=== PATIENT | female | born 1990 | race Caucasian/White ===

== ENCOUNTER → 2016-06-25 | Outpatient (REF) ==
[~2016-06-25] MED LIST: ALB0.5V INH; ALPR1TAB7 PO; AMOXIL; CLIN300C3 PO; CYCL10TA45 PO; FERR-57 PO; FRS325T; GLYB5TAB6 PO; HDR10T; HYDR-1231 PO; HYDR-31; IBP600T1 PO; IBUP-1780 PO; IBUP800T26 PO; METR500T PO; NITR-65 PO; NITR100C PO; ONDAN4ODT PO; OSLT75C PO; OXYC-272 PO; PHEN200T27 PO; PREN1TAB39; PREN1TAB39 PO; PRNMV1T; ZLP10T PO
--- NOTE | 2016-06-25 10:07 | Diagnostic Imaging Report ---
INDICATION: Medial left knee pain for one week. 3 views of the left knee show no fracture, dislocation, or other abnormality. IMPRESSION: Normal left knee. Dictated by: Dictated on workstation # [id number]
== END | disposition home or self-care (01) ==
LOC: OCC 09:33
PROVIDERS: ATTEND Nurse Practitioner Family
CPT/HCPCS: 73562

== ENCOUNTER → 2016-07-14 | Outpatient (CLI) | payer BC ==
--- NOTE | 2016-07-14 17:13 | Diagnostic Imaging Report ---
Transabdominal and transvaginal pelvic ultrasound. INDICATION: Pelvic pain. Secondary amenorrhea. FINDINGS: The uterus is 7.3 x 4.6 x 4.4 cm. The endometrial stripe is 1 cm in thickness. No endometrial or myometrial focal lesion of significance is identified. Minimal amount of endometrial fluid is seen in the lower uterine segment. The right ovary is 3.2 x 4.6 x 2.8 cm. The left ovary is 4.6 x 3.3 x 3.2 cm. There is a 3.3 cm simple cyst arising from the inferior aspect of the right ovary. No solid mass identified. Ovarian follicles are seen. There are venous and arterial waveforms noted in both ovaries. No significant free fluid or fluid collection in the pelvis seen. IMPRESSION: 3.3 cm simple cyst in the right ovary. Dictated by: Dictated on workstation # [id number]
== END ==
LOC: RAD 16:28
PROVIDERS: ATTEND Family Medicine
DX: N83.201 Unspecified ovarian cyst, right side (principal)
CPT/HCPCS: 76830; 76856

== ENCOUNTER 2017-07-05 06:29 | Outpatient (CLI) | payer BC ==
[~2017-07-05] VITALS: Ht 165.1 cm; Wt 86.4 kg
[2017-07-05] MEDS ORDERED: TRUVISION PO (10:55)
[2017-07-09] MEDS ORDERED: OXYC-465 PO ×2 (11:55→11:58)
[2017-07-09] MEDS ORDERED: DOCU100C37 PO (11:55)
[2017-07-09] MEDS ORDERED: IBUP-1780 PO (11:55)
[2017-07-30] MEDS ORDERED: NITR100C10 (13:09)
[2017-07-30] MEDS ORDERED: HYDR-757 PO (13:58)
[2017-07-30] MEDS ORDERED: CEFU500T63 PO (13:58)
[2017-07-30] MEDS ORDERED: PHEN-640 PO (13:58)
== END 2017-07-05 11:06 ==
LOC: PREOP 06:29
PROVIDERS: ATTEND Obstetrics & Gynecology
DX: Z01.818 Encounter for other preprocedural examination (principal); R32 Unspecified urinary incontinence

== ENCOUNTER 2017-07-09 09:36 | Day surgery (SDC) | payer BC ==
[~2017-07-09] VITALS: Ht 165.1 cm; Wt 86.4 kg
[~2017-07-09 09:36] MED LIST changes: +TRUVISION PO
--- OUTSIDE RECORDS SUMMARY | 2017-07-09 09:40 | XMS REPORT | Continuity of Care Document ---
Author Author [facility] Address Unknown Phone Unavailable Allergies Active Description Code Type Severity Reaction Onset Reported/Identified Relationship to Patient Clinical Status Yes Augmentin Drug Allergy 02/12/2009 Yes Augmentin Drug Allergy N/A N/A 02/12/2009 Yes amoxicillin [id number] Drug Allergy Unknown N/A 07/05/2017 Yes clavulanic acid [id number] Drug Allergy Unknown N/A 07/05/2017 Medications There is no data. Problems Date Dx Coded Attending Type Code Diagnosis Diagnosed By 02/12/2009 V25.02 Contraceptives 02/12/2009 JAMES BAE DO K V25.02 Contraceptives 02/12/2009 JAMES BAE DO K V25.02 Contraceptives 02/12/2009 V25.02 Contraceptives 02/12/2009 SYLVIA LUNDBERG APRN V25.02 Contraceptives 02/12/2009 ERINN BAILEY APRN V25.02 Contraceptives 02/12/2009 VERNON MITCHELL, CLARA Haynes V25.02 Contraceptives 03/06/2009 216.4 BENIGN NEOPLASM OF SCALP AND SKIN OF NECK 03/06/2009 530.81 ESOPHAGEAL REFLUX 03/06/2009 784.0 headache 03/06/2009 BAE STELLA NOELA K 216.4 BENIGN NEOPLASM OF SCALP AND SKIN OF NECK 03/06/2009 KATHIA NOEL JAMES K 530.81 ESOPHAGEAL REFLUX 03/06/2009 BAE DO JAMES K 784.0 headache 03/06/2009 BAE DO, JAMES K 216.4 BENIGN NEOPLASM OF SCALP AND SKIN OF NECK 03/06/2009 BAE DO JAMES K 530.81 ESOPHAGEAL REFLUX 03/06/2009 BAE DO JAMES K 784.0 headache 03/06/2009 216.4 BENIGN NEOPLASM OF SCALP AND SKIN OF NECK 03/06/2009 530.81 ESOPHAGEAL REFLUX 03/06/2009 784.0 headache 03/06/2009 SYLVIA LUNDBERG APRN A 216.4 BENIGN NEOPLASM OF SCALP AND SKIN OF NECK 03/06/2009 TAMIKAKEMI Winston APRNIDI A 530.81 ESOPHAGEAL REFLUX 03/06/2009 TAMIKA KEMI OLSONIDI A 784.0 headache 03/06/2009 ALONZOFERNY Marin APRNYL A 216.4 BENIGN NEOPLASM OF SCALP AND SKIN OF NECK 03/06/2009 CLAUDINECARMELAFERNY Marin APRNYL A 530.81 ESOPHAGEAL REFLUX 03/06/2009 FERNY BAILEY APRNYL A 784.0 headache 03/06/2009 CLARA JUNIOR PHD 216.4 BENIGN NEOPLASM OF SCALP AND SKIN OF NECK 03/06/2009 CLARA JUNIOR PHD 530.81 ESOPHAGEAL REFLUX 03/06/2009 VERNON MITCHELL, CLARA Haynes 784.0 headache 03/28/2009 V72.9 ROUTINE GENITOURINARY EXAM 03/28/2009 JAMES BAE DO K V72.9 ROUTINE GENITOURINARY EXAM 03/28/2009 JAMES BAE DO V72.9 ROUTINE GENITOURINARY EXAM 03/28/2009 V72.9 ROUTINE GENITOURINARY EXAM 03/28/2009 TAMIKAKEMI TEMPLE APRNIDI A V72.9 ROUTINE GENITOURINARY EXAM 03/28/2009 FERNY BAILEY APRNYL A V72.9 ROUTINE GENITOURINARY EXAM 03/28/2009 VERNON MITCHELL, CLARA Haynes V72.9 ROUTINE GENITOURINARY EXAM 05/11/2009 462 ACUTE PHARYNGITIS 05/11/2009 704.8 OTHER SPECIFIED DISEASES OF HAIR AND HAIR FOLLICLES 05/11/2009 785.6 LYMPH NODES ENLARGEMENT 05/11/2009 JAMES ABE DO K 462 ACUTE PHARYNGITIS 05/11/2009 JAMES BAE DO 704.8 OTHER SPECIFIED DISEASES OF HAIR AND HAIR FOLLICLES 05/11/2009 JAMES BAE DO K 785.6 LYMPH NODES ENLARGEMENT 05/11/2009 STELLA BAE DOA K 462 ACUTE PHARYNGITIS 05/11/2009 JAMES BAE DO K 704.8 OTHER SPECIFIED DISEASES OF HAIR AND HAIR FOLLICLES 05/11/2009 JAMES BAE DO K 785.6 LYMPH NODES ENLARGEMENT 05/11/2009 462 ACUTE PHARYNGITIS 05/11/2009 704.8 OTHER SPECIFIED DISEASES OF HAIR AND HAIR FOLLICLES 05/11/2009 785.6 LYMPH NODES ENLARGEMENT 05/11/2009 TAMIKA OLSON, SYLVIA A 462 ACUTE PHARYNGITIS 05/11/2009 TAMIKA FLEET MANAGER/DISPATCH, SYLVIA A 704.8 OTHER SPECIFIED DISEASES OF HAIR AND HAIR FOLLICLES 05/11/2009 TAMIKA CASTN, SYLVIA A 785.6 LYMPH NODES ENLARGEMENT 05/11/2009 LYNN FLEET MANAGER/DISPATCH, ERINN A 462 ACUTE PHARYNGITIS 05/11/2009 LYNN CASTN, ERINN A 704.8 OTHER SPECIFIED DISEASES OF HAIR AND HAIR FOLLICLES 05/11/2009 LYNN CASTN, ERINN A 785.6 LYMPH NODES ENLARGEMENT 05/11/2009 CLARA JUNIOR PHD 462 ACUTE PHARYNGITIS 05/11/2009 VERNON MITCHELL, CLARA Haynes 704.8 OTHER SPECIFIED DISEASES OF HAIR AND HAIR FOLLICLES 05/11/2009 VERNON MITCHELL, CLARA Haynes 785.6 LYMPH NODES ENLARGEMENT 02/06/2010 626.4 IRREGULAR MENSTRUAL CYCLE 02/06/2010 V18.0 FAM HX DIABETES MELLITUS 02/06/2010 JAMES BAE DO K 626.4 IRREGULAR MENSTRUAL CYCLE 02/06/2010 JAMES BAE DO V18.0 FAM HX DIABETES MELLITUS 02/06/2010 JAMES BAE DO K 626.4 IRREGULAR MENSTRUAL CYCLE 02/06/2010 JAMES BAE DO K V18.0 FAM HX DIABETES MELLITUS 02/06/2010 626.4 IRREGULAR MENSTRUAL CYCLE 02/06/2010 V18.0 FAM HX DIABETES MELLITUS 02/06/2010 TAMIKA CASTN, SYLVIA A 626.4 IRREGULAR MENSTRUAL CYCLE 02/06/2010 TAMIKA CASTN, SYLVIA A V18.0 FAM HX DIABETES MELLITUS 02/06/2010 LYNN CASTN, ERINN A 626.4 IRREGULAR MENSTRUAL CYCLE 02/06/2010 LYNN CASTN, ERINN A V18.0 FAM HX DIABETES MELLITUS 02/06/2010 CLARA JUNIOR PHD 626.4 IRREGULAR MENSTRUAL CYCLE 02/06/2010 CLARA JUNIOR PHD V18.0 FAM HX DIABETES MELLITUS 03/24/2010 008.8 INTESTINAL INFECTION DUE TO OTHER ORGANISM NOT ELSEWHERE CLASSIFIED 03/24/2010 V72.42 TEST POSITIVE RESULT 03/24/2010 JAMES BAE DO 008.8 INTESTINAL INFECTION DUE TO OTHER ORGANISM NOT ELSEWHERE CLASSIFIED 03/24/2010 BAE DO, JAMES K V72.42 TEST POSITIVE RESULT 03/24/2010 JAMES BAE DO K 008.8 INTESTINAL INFECTION DUE TO OTHER ORGANISM NOT ELSEWHERE CLASSIFIED 03/24/2010 KATHIA NOEL JAMES K V72.42 TEST POSITIVE RESULT 03/24/2010 008.8 INTESTINAL INFECTION DUE TO OTHER ORGANISM NOT ELSEWHERE CLASSIFIED 03/24/2010 V72.42 TEST POSITIVE RESULT 03/24/2010 TAMIKA FLEET MANAGER/DISPATCH, SYLVIA A 008.8 INTESTINAL INFECTION DUE TO OTHER ORGANISM NOT ELSEWHERE CLASSIFIED 03/24/2010 TAMIKA FLEET MANAGER/DISPATCH, SYLVIA A V72.42 TEST POSITIVE RESULT 03/24/2010 RAJCARMELAE FLEET MANAGER/DISPATCH, ERINN A 008.8 INTESTINAL INFECTION DUE TO OTHER ORGANISM NOT ELSEWHERE CLASSIFIED 03/24/2010 RAJCARMELAE FLEET MANAGER/DISPATCH, ERINN A V72.42 TEST POSITIVE RESULT 03/24/2010 VRENON PHDCLARA 008.8 INTESTINAL INFECTION DUE TO OTHER ORGANISM NOT ELSEWHERE CLASSIFIED 03/24/2010 CLARA JUNIOR PHD V72.42 TEST POSITIVE RESULT 06/28/2010 Ot 276.51 DEHYDRATION 06/28/2010 Ot 490 BRONCHITIS NOS 06/28/2010 Ot 646.83 PREG COMPL NEC-ANTEPART 04/06/2011 300.00 ANXIETY DISORDER NOS 04/06/2011 780.79 FATIGUE 04/06/2011 BAE STELLA NOELA K 300.00 ANXIETY DISORDER NOS 04/06/2011 BAE SETLLA NOELA K 780.79 FATIGUE 04/06/2011 KATHIA NOELSTELLAA K 300.00 ANXIETY DISORDER NOS 04/06/2011 BAE STELLA NOELA K 780.79 FATIGUE 04/06/2011 300.00 ANXIETY DISORDER NOS 04/06/2011 780.79 FATIGUE 04/06/2011 TAMIKA FLEET MANAGER/DISPATCH, SYLVIA A 300.00 ANXIETY DISORDER NOS 04/06/2011 TAMIKA FLEET MANAGER/DISPATCH, SYLVIA A 780.79 FATIGUE 04/06/2011 ALONZOE FLEET MANAGER/DISPATCH, ERINN A 300.00 ANXIETY DISORDER NOS 04/06/2011 LYNN OLSON, ERINN A 780.79 FATIGUE 04/06/2011 VERNON PHDCLARA 300.00 ANXIETY DISORDER NOS 04/06/2011 CLARA JUNIOR PHD 780.79 FATIGUE 04/13/2011 285.9 ANEMIA 04/13/2011 719.46 PAIN IN JOINT INVOLVING LOWER LEG 04/13/2011 BAE DO, JAMES K 285.9 ANEMIA 04/13/2011 BAE DO, JAMES K 719.46 PAIN IN JOINT INVOLVING LOWER LEG 04/13/2011 BAE DO, JAMES K 285.9 ANEMIA 04/13/2011 BAE DO, JAMES K 719.46 PAIN IN JOINT INVOLVING LOWER LEG 04/13/2011 285.9 ANEMIA 04/13/2011 719.46 PAIN IN JOINT INVOLVING LOWER LEG 04/13/2011 TAMIKA APRN, SYLVIA A 285.9 ANEMIA 04/13/2011 TAMIKA FLEET MANAGER/DISPATCH, SYLVIA A 719.46 PAIN IN JOINT INVOLVING LOWER LEG 04/13/2011 LYNN OLSON ERINN A 285.9 ANEMIA 04/13/2011 LYNN OLSON ERINN A 719.46 PAIN IN JOINT INVOLVING LOWER LEG 04/13/2011 VERNON MITCHELL, CLARA Haynes 285.9 ANEMIA 04/13/2011 VERNON MITCHELL, CLARA Haynes 719.46 PAIN IN JOINT INVOLVING LOWER LEG 03/11/2012 625.0 DYSPAREUNIA 03/11/2012 625.3 DYSMENORRHEA 03/11/2012 626.2 MENORRHAGIA 03/11/2012 704.1 HIRSUTISM 03/11/2012 783.1 WEIGHT GAIN ABNORMAL 03/11/2012 BAE DO, JAMES K 625.0 DYSPAREUNIA 03/11/2012 BAE DO, JAMES K 625.3 DYSMENORRHEA 03/11/2012 BAE DO, JAMES K 626.2 MENORRHAGIA 03/11/2012 BAE DO, JAMES K 704.1 HIRSUTISM 03/11/2012 BAE DO, JAMES K 783.1 WEIGHT GAIN ABNORMAL 03/11/2012 BAE DO, JAMES K 625.0 DYSPAREUNIA 03/11/2012 BAE DO, JAMES K 625.3 DYSMENORRHEA 03/11/2012 BAE DO, JAMES K 626.2 MENORRHAGIA 03/11/2012 BAE DO, JAMES K 704.1 HIRSUTISM 03/11/2012 BAE DO, JAMES K 783.1 WEIGHT GAIN ABNORMAL 03/11/2012 625.0 DYSPAREUNIA 03/11/2012 625.3 DYSMENORRHEA 03/11/2012 626.2 MENORRHAGIA 03/11/2012 704.1 HIRSUTISM 03/11/2012 783.1 WEIGHT GAIN ABNORMAL 03/11/2012 TAMIKA FLEET MANAGER/DISPATCH, SYLVIA A 625.0 DYSPAREUNIA 03/11/2012 TAMIKA FLEET MANAGER/DISPATCH, SYLVIA A 625.3 DYSMENORRHEA 03/11/2012 TAMIKA FLEET MANAGER/DISPATCH, SYLVIA A 626.2 MENORRHAGIA 03/11/2012 TAMIKA FLEET MANAGER/DISPATCH, SYLVIA A 704.1 HIRSUTISM 03/11/2012 TAMIKA FLEET MANAGER/DISPATCH, SYLVIA A 783.1 WEIGHT GAIN ABNORMAL 03/11/2012 RAJCARMELAE FLEET MANAGER/DISPATCH, ERINN A 625.0 DYSPAREUNIA 03/11/2012 RAJOTTE FLEET MANAGER/DISPATCH, ERINN A 625.3 DYSMENORRHEA 03/11/2012 RAJOTTE FLEET MANAGER/DISPATCH, ERINN A 626.2 MENORRHAGIA 03/11/2012 RAJOTTE FLEET MANAGER/DISPATCH, ERINN A 704.1 HIRSUTISM 03/11/2012 ALONZOE FLEET MANAGER/DISPATCH, ERINN A 783.1 WEIGHT GAIN ABNORMAL 03/11/2012 CLARA JUNIOR PHD 625.0 DYSPAREUNIA 03/11/2012 CLARA JUNIOR PHD 625.3 DYSMENORRHEA 03/11/2012 CLARA JUNIOR PHD 626.2 MENORRHAGIA 03/11/2012 CLARA JUNIOR PHD 704.1 HIRSUTISM 03/11/2012 CLARA JUNIOR PHD 783.1 WEIGHT GAIN ABNORMAL 03/24/2012 JAMES BAE DO 311 DEPRESSIVE DISORDER NOT ELSEWHERE CLASSIFIED 03/24/2012 JAMES BAE DO 788.41 URINARY FREQUENCY 03/24/2012 311 DEPRESSIVE DISORDER NOT ELSEWHERE CLASSIFIED 03/24/2012 788.41 URINARY FREQUENCY 03/24/2012 TAMIKA APRN, SYLVIA A 311 DEPRESSIVE DISORDER NOT ELSEWHERE CLASSIFIED 03/24/2012 TAMIKA FLEET MANAGER/DISPATCH, SYLVIA A 788.41 URINARY FREQUENCY 03/24/2012 LYNN OLSON, ERINN A 311 DEPRESSIVE DISORDER NOT ELSEWHERE CLASSIFIED 03/24/2012 LYNN OLSON, ERINN A 788.41 URINARY FREQUENCY 03/24/2012 CLARA JUNIOR PHD 311 DEPRESSIVE DISORDER NOT ELSEWHERE CLASSIFIED 03/24/2012 CLARA JUNIOR PHD 788.41 URINARY FREQUENCY 01/27/2014 SEE WHITLEY FLEET MANAGER/DISPATCH Ot 521.00 UNSPEC DENTAL CARIES 01/27/2014 SEE WHITLEY APRN Ot 525.9 DENTAL DISORDER NOS 03/23/2014 LYNN OLSON ERINN A 300.3 AN OBCESS COMP DIS 03/23/2014 LYNN OLSON ERINN A 314.00 ADHD INATTENTIVE 03/23/2014 VERNON MITCHELL, CLARA Haynes 300.3 AN OBCESS COMP DIS 03/23/2014 CLARA JUNIOR PHD 314.00 ADHD INATTENTIVE 03/27/2014 LYNN OLSON ERINN A 278.01 OBESITY, MORBID (BMI >40) 03/27/2014 FERNY BAILEY APRNYL A 611.71 MASTODYNIA 03/27/2014 VERNON MITCHELL, CLARA Haynes 278.01 OBESITY, MORBID (BMI >40) 03/27/2014 VERNON MITCHELL, CLARA Haynes 611.71 MASTODYNIA 04/03/2014 CLARA JUNIOR PHD 294.9 OR COG DIS NOS 05/27/2015 PINKY SINGH MD Ot R41.3 05/27/2015 PINKY SINGH MD Ot R51 01/10/2016 PINKY SINGH MD Ot R41.3 OTHER AMNESIA 01/10/2016 PINKY SINGH MD Ot R51 HEADACHE 01/13/2016 PINKY SINGH MD Ot N93.8 OTHER SPECIFIED ABNORMAL UTERINE AND VAG 01/22/2016 PINKY SINGH MD Ot N93.8 OTHER SPECIFIED ABNORMAL UTERINE AND VAG 02/19/2016 PINKY SINGH MD Ot R41.3 OTHER AMNESIA 02/19/2016 PINKY SINGH MD Ot R51 HEADACHE 02/19/2016 PINKY SINGH MD Ot N93.8 OTHER SPECIFIED ABNORMAL UTERINE AND VAG 02/19/2016 BRENDA, ANNE BUNG SEWER Ot R10.32 LEFT LOWER QUADRANT PAIN 02/19/2016 BRENDA, ANNE BUNG SEWER Ot R11.0 NAUSEA 02/20/2016 BRENDA, ANNE BUNG SEWER Ot R10.32 LEFT LOWER QUADRANT PAIN 02/20/2016 BRENDA, ANNE BUNG SEWER Ot R11.0 NAUSEA 02/21/2016 BRENDA, ANNE BUNG SEWER Ot R10.32 LEFT LOWER QUADRANT PAIN 02/21/2016 RBENDA, ANNE BUNG SEWER Ot R11.0 NAUSEA 07/14/2016 PINKY SINGH MD Ot R41.3 OTHER AMNESIA 07/14/2016 PINKY SINGH MD Ot R51 HEADACHE 07/14/2016 PINKY SINGH MD Ot N93.8 OTHER SPECIFIED ABNORMAL UTERINE AND VAG 07/22/2016 PINKY SINGH MD Ot N83.201 UNSPECIFIED OVARIAN CYST, RIGHT SIDE 07/05/2017 PINKY SINGH MD Ot R41.3 OTHER AMNESIA 07/05/2017 PINKY SINGH MD Ot R51 HEADACHE 07/05/2017 PINKY SINGH MD, Ot N93.8 OTHER SPECIFIED ABNORMAL UTERINE AND VAG 07/05/2017 PINKY SINGH MD Ot N83.201 UNSPECIFIED OVARIAN CYST, RIGHT SIDE 07/06/2017 WILTON ESTRELLA MD, Ot R32 UNSPECIFIED URINARY INCONTINENCE 07/06/2017 WILTON ESTRELLA MD Ot Z01.818 ENCOUNTER FOR OTHER PREPROCEDURAL EXAMIN Procedures Code Description [place] [address] PAP SMEAR 01/15/2011 03798 ROUTINE VENIPUNCTURE 03/18/2012 82506 CMP 03/18/2012 35080 LIPID PANEL 03/18/2012 05477 A1C (IN-HOUSE) 03/18/2012 34214 TESTOSTERONE TOTAL 03/18/2012 19286 CBC 03/18/2012 THYANA THYROID ANALYZER 03/18/2012 50154 UA W/ CULTURE IF INDICATED 03/24/2012 07436 CULTURE URINE 03/26/2012 08481 US PELVIC COMPL (REFLEX CPT - 68728) 04/17/2013 23869 PSYCH DIAGNOSTIC EVALUATION 03/28/2014 73929 PSYTX PT&/FAMILY 30 MINUTES 04/03/2014 Results Test Result Range Complete urinalysis with reflex to culture - 02/19/16 20:42 Urine color determination YELLOW NRG Urine clarity determination CLEAR NRG Urine pH measurement by test strip 6.5 5-9 Specific gravity of urine by test strip 1.020 1.016- 1.022 Urine protein assay by test strip, semi-quantitative NEGATIVE NEGATIVE Urine glucose detection by automated test strip NEGATIVE NEGATIVE Erythrocytes detection in urine sediment by light microscopy 1+ NEGATIVE Urine ketones detection by automated test strip NEGATIVE NEGATIVE Urine nitrite detection by test strip NEGATIVE NEGATIVE Urine total bilirubin detection by test strip NEGATIVE NEGATIVE Urine urobilinogen measurement by automated test strip (mass/volume) NORMAL NORMAL Urine leukocyte esterase detection by dipstick 1+ NEGATIVE Automated urine sediment erythrocyte count by microscopy (number/high power field) [HPF] NRG Automated urine sediment leukocyte count by microscopy (number/high power field ) [HPF] NRG Bacteria detection in urine sediment by light microscopy NONE NRG Squamous epithelial cells detection in urine sediment by light microscopy 0-2 NRG Crystals detection in urine sediment by light microscopy PRESENT NRG Casts detection in urine sediment by light microscopy NONE NRG Mucus detection in urine sediment by light microscopy NEGATIVE NRG Complete urinalysis with reflex to culture NO NRG Amorphous sediment detection in urine sediment by light microscopy FEW HUEY URATES NRG Complete blood count (CBC) with automated white blood cell (WBC) differential - 02/19/16 21:25 Blood leukocytes automated count (number/volume) 8.4 10*3/uL 4.3-11.0 Blood erythrocytes automated count (number/volume) 4.82 10*6/uL 4.35-5.85 Venous blood hemoglobin measurement (mass/volume) 12.5 g/dL 11.5-16.0 Blood hematocrit (volume fraction) 38 % 35-52 Automated erythrocyte mean corpuscular volume 80 [foz_us] 80-99 Automated erythrocyte mean corpuscular hemoglobin (mass per erythrocyte) 26 pg 25-34 Automated erythrocyte mean corpuscular hemoglobin concentration measurement ( mass/volume) 33 g/dL 32-36 Automated erythrocyte distribution width ratio 16.7 % 10.0-14.5 Automated blood platelet count (count/volume) 533 10*3/uL 130-400 Automated blood platelet mean volume measurement 9.4 [foz_us] 7.4-10.4 Automated blood neutrophils/100 leukocytes 47 % 42-75 Automated blood lymphocytes/100 leukocytes 40 % 12-44 Blood monocytes/100 leukocytes 11 % 0-12 Automated blood eosinophils/100 leukocytes 2 % 0-10 Automated blood basophils/100 leukocytes 1 % 0-10 Blood neutrophils automated count (number/volume) 3.9 10*3 1.8-7.8 Blood lymphocytes automated count (number/volume) 3.4 10*3 1.0-4.0 Blood monocytes automated count (number/volume) 0.9 10*3 0.0-1.0 Automated eosinophil count 0.2 10*3/uL 0.0-0.3 Automated blood basophil count (count/volume) 0.0 10*3/uL 0.0-0.1 Comprehensive metabolic panel - 02/19/16 21:25 Serum or plasma sodium measurement (moles/volume) 139 mmol/L 135-145 Serum or plasma potassium measurement (moles/volume) 3.7 mmol/L 3.6-5.0 Serum or plasma chloride measurement (moles/volume) 106 mmol/L 98-107 Carbon dioxide 24 mmol/L 21-32 Serum or plasma anion gap determination (moles/volume) 9 mmol/L 5-14 Serum or plasma urea nitrogen measurement (mass/volume) 14 mg/dL 7-18 Serum or plasma creatinine measurement (mass/volume) 1.12 mg/dL 0.60-1.30 Serum or plasma urea nitrogen/creatinine mass ratio 13 NRG Serum or plasma creatinine measurement with calculation of estimated glomerular filtration rate 59 NRG Serum or plasma glucose measurement (mass/volume) 104 mg/dL 70-105 Serum or plasma calcium measurement (mass/volume) 9.5 mg/dL 8.5-10.1 Serum or plasma total bilirubin measurement (mass/volume) 0.2 mg/dL 0.1-1.0 Serum or plasma alkaline phosphatase measurement (enzymatic activity/volume) 69 U/L 40-136 Serum or plasma aspartate aminotransferase measurement (enzymatic activity/ volume) 19 U/L 5-34 Serum or plasma alanine aminotransferase measurement (enzymatic activity/volume ) 20 U/L 0-55 Serum or plasma protein measurement (mass/volume) 7.4 g/dL 6.4-8.2 Serum or plasma albumin measurement (mass/volume) 4.2 g/dL 3.2-4.5 Encounters ACCT No. Visit Date/Time Discharge Status Pt. Type Provider Facility Loc./Unit Complaint [id number] 04/03/2014 10:46:00 04/03/2014 23:59:59 [facility] Outpatient VERNON MITCHELL, CLARA Haynes [id number] 03/27/2014 14:44:00 03/27/2014 23:59:59 [facility] Outpatient ERINN BAILEY APRN [id number] 04/17/2013 14:14:00 04/17/2013 23:59:59 CLS Outpatient SYLVIA LUNDBERG APRN [id number] 05/19/2012 13:41:00 05/19/2012 23:59:59 CLS Outpatient [id number] 03/24/2012 14:02:00 03/24/2012 23:59:59 CLS Outpatient JAMES BAE DO [id number] 03/18/2012 11:10:00 03/18/2012 23:59:59 CLS Outpatient JAMES BAE DO [id number] 03/11/2012 15:27:00 03/11/2012 23:59:59 CLS Outpatient [id number] 07/05/2017 06:29:00 07/05/2017 11:06:00 DIS Outpatient SAMEER VAZQUEZ, WILTON Silva [facility] PREOP UTERAL/VAGINAL PROLAPSE,KARON [id number] 07/14/2016 16:28:00 07/14/2016 23:59:59 CLS Outpatient PINKY SINGH MD [facility] RAD AMENNOREHA,PELVIC DISCOMFORT [id number] 06/25/2016 09:33:00 06/25/2016 23:59:59 CLS Outpatient ERINN CEJA [facility] OCC PAIN IN LEFT KNEE [id number] 02/19/2016 20:31:00 02/19/2016 22:46:00 DIS Emergency ANNE GUTIERREZ DANK [facility] ER ABD PAIN [id number] 01/10/2016 13:35:00 01/10/2016 23:59:59 CLS Outpatient PINKY SINGH MD [facility] RAD DUB [id number] 05/06/2015 12:13:00 05/06/2015 23:59:59 CLS Outpatient PINKY SINGH MD [facility] RAD HEADACHE,MEMORY LOSS [id number] 01/27/2014 20:12:00 01/27/2014 21:25:00 DIS Emergency SEE WHITLEY APRN [facility] ER R SIDED FACIAL PAIN [id number] 12/16/2013 12:56:00 12/16/2013 15:07:00 DIS Emergency [id number] 04/24/2013 12:43:00 04/24/2013 23:59:59 CLS Outpatient [id number] 07/26/2012 18:14:00 07/26/2012 19:35:00 DIS Emergency [id number] 07/09/2017 12:00:00 MICHAEL ESTRELLA MD, WILTON Vargas [facility] UTERAL/VAGINAL PROLAPSE,KARON [id number] 07/05/2017 10:55:00 Document Registration [id number] 06/27/2010 10:00:00 Document Registration
[2017-07-09 09:45] VITALS: BP 122/90
[2017-07-09] MEDS ORDERED: ceFAZolin INJECTION 1,000 MG in NS (IVPB) 100 ML IV ONE (10:00)
[2017-07-09] MEDS: LACTATED RINGERS 1,000 ML IV PRN ×2 (10:17→14:31)
[2017-07-09 10:25] LABS: BASOPHILS % (AUTO) 1 % (0-10); EOSINOPHILS # (AUTO) 0.1 10^3/uL (0.0-0.3); EOSINOPHILS % (AUTO) 1 % (0-10); HEMATOCRIT 39 % (35-52); HEMOGLOBIN 12.9 G/DL (11.5-16.0); LYMPHOCYTES # (AUTO) 1.7 X 10^3 (1.0-4.0); LYMPHOCYTES % (AUTO) 37 % (12-44); MEAN CORPUSCULAR HEMOGLOBIN 28 PG (25-34); MEAN CORPUSCULAR HGB CONC 33 G/DL (32-36); MEAN CORPUSCULAR VOLUME 85 FL (80-99); MEAN PLATELET VOLUME 9.1 FL (7.4-10.4); MONOCYTES # (AUTO) 0.5 X 10^3 (0.0-1.0); MONOCYTES % (AUTO) 11 % (0-12); NEUTROPHILS # (AUTO) 2.3 X 10^3 (1.8-7.8); NEUTROPHILS % (AUTO) 50 % (42-75); PLATELET COUNT 431 10^3/uL (130-400); RED BLOOD COUNT 4.63 10^6/uL (4.35-5.85); RED CELL DISTRIBUTION WIDTH 15.1 % (10.0-14.5); WHITE BLOOD COUNT 4.7 10^3/uL (4.3-11.0)
[2017-07-09] MEDS ORDERED: FAMOTIDINE 20MG/2ML IV (PEPCID) IV ONE (10:30)
[2017-07-09] MEDS ORDERED: BUP/EPI 0.5% 1:200,000 (SENSORCAINE) 30 ML VIAL ONE (10:30)
[2017-07-09] MEDS ORDERED: ESTRADIOL VAGINAL CREAM 42.5 GM (ESTRACE) VG ONE (10:31)
[2017-07-09] MEDS ORDERED: MIDAZOLAM 2 MG/2 ML (VERSED) VIAL ONE (11:39)
[2017-07-09] MEDS ORDERED: fentaNYL INJECTION 250 MCG/5 ML AMP ONE (11:39)
--- NOTE | 2017-07-09 11:50 | Progress Note-Pre Operative ---
Pre-Operative Progress Note H&P Reviewed The H&P was reviewed, patient examined and no changes noted. Date Seen by Provider: Jul 09, 2017 Time Seen by Provider: 11:49 Date H&P Reviewed: Jul 09, 2017 Time H&P Reviewed: 11:49 Pre-Operative Diagnosis: Uterovaginal prolapse / KARON WILTON ESTRELLA MD Jul 09, 2017 11:50 am
[2017-07-09] MEDS ORDERED: D5 LR IV SOLUTION 1,000 ML IV SCH (11:51)
--- NOTE | 2017-07-09 11:51 | Progress Note-Post Operative ---
Post-Operative Progess Note Surgeon (s)/Information Assurance (s) Surgeon WILTON ESTRELLA MD Information Assurance: Rebecca Barnett Pre-Operative Diagnosis Uterovaginal prolapse / KARON Post-Operative Diagnosis same with path pending Procedure & Operative Findings Date of Procedure 07/09/17 Procedure Performed/Findings [facility] BSO AandP repair, PVS and Cystobt Dr Maza Anesthesia Type geta Estimated Blood Loss Estimated blood loss (mL): 300 cc Specimens/Packing Specimens Removed UTerus and tubes Packing: Kerlix to vagina WILTON ESTRELLA MD Jul 09, 2017 11:51
[2017-07-09] MEDS ORDERED: IBUP-1780 PO (11:55)
[2017-07-09] MEDS ORDERED: DOCU100C37 PO (11:55)
[2017-07-09] MEDS ORDERED: OXYC-465 PO ×2 (11:55→11:58)
--- NOTE | 2017-07-09 11:58 | Discharge Instructions ---
Discharge Instructions Discharge Medications New, Converted or Re-Newed RX: RX on Chart Patient Instructions Patient Instructions: as directed Return to The Hospital For: as directed Activity & Diet Discharge Diet: No Restrictions Activity as Tolerated: No Orders-Post D/C & Referrals Follow Up Appt: RTC with me on July 12, 2017 at 930 am for staple removal Call to make follow up appt. for patient in 4 weeks. Activity: Rest for 24 hours, than as tolerated. Wound Care: May remove Band-Aid tomorrow. Replace as desired. Keep incisions clean and dry. Wash daily with soap and water. Please call in RX to patient pharmacy. Diet: As tolerated-Clear Liquids only if nauseated. Tomorrow, may shower or tub bathe as desired. No driving for 24 hours, no alcoholic beverages for 24 hours, and nothing per vagina (no tampons, douching, or intercourse) for 8 weeks. Patient to return to the clinic as soon as possible for: Temperature greater than 101F, Severe Pain, Foul discharge from incision or vagina, Excessive Bleeding (more than a period). WILTON ESTRELLA MD Jul 09, 2017 11:58 am
[2017-07-09] MEDS ORDERED: BENZOCAINE/MENTHOL (DERMOPLAST) 56 ML CAN TP PRN (12:00)
[2017-07-09] MEDS ORDERED: ONDANSETRON 4 MG/2 ML (SDV) Z0FRAN IVP PRN ×3 (12:00→13:30)
[2017-07-09] MEDS ORDERED: KETOROLAC 30 MG/ML VIAL IVP SCH (12:00)
[2017-07-09] MEDS ORDERED: PROMETHAZINE INJ 25 MG/ML (PHENERGAN) AMP IM PRN (12:00)
[2017-07-09] MEDS ORDERED: MEPERIDINE (DEMEROL) INJ 100 MG/ML IM PRN (12:00)
[2017-07-09] MEDS ORDERED: ONDANSETRON 4 MG/2 ML (SDV) Z0FRAN ONE ×2 (12:30→13:40)
[2017-07-09] MEDS ORDERED: LIDOCAINE PF 2% 5 ML (XYLOCAINE) VIAL ONE (12:30)
[2017-07-09] MEDS ORDERED: ROCURONIUM 10 MG/ML 5 ML SYRINGE IV ONE (12:30)
[2017-07-09] MEDS ORDERED: LIDOCAINE JELLY 2% (XYLOCAINE) 5 ML TUBE ONE (12:30)
[2017-07-09] MEDS ORDERED: SEVOFLURANE (ULTANE) 15 ML INHAL SOLN ONE ×9 (12:30→14:19)
[2017-07-09] MEDS ORDERED: proPOfol 200 MG/20 ML (DIPRIVAN) VIAL IV ONE (12:30)
--- NOTE | 2017-07-09 12:41 | Progress Note-Pre Operative ---
Pre-Operative Progress Note H&P Reviewed The H&P was reviewed, patient examined and no changes noted. Date Seen by Provider: Jul 09, 2017 Time Seen by Provider: 12:40 Date H&P Reviewed: Jul 09, 2017 Time H&P Reviewed: 12:40 Pre-Operative Diagnosis: JAYESH MORGAN MD Jul 09, 2017 12:41 pm
--- NOTE | 2017-07-09 12:42 | Progress Note-Post Operative ---
Post-Operative Progess Note Surgeon (s)/Distribution Accounting Clerk (s) Surgeon JAYESH RAMIREZ MD Distribution Accounting Clerk: ANTOINETTE Pre-Operative Diagnosis KARON Post-Operative Diagnosis SAME Procedure & Operative Findings Date of Procedure 07/09/17 Procedure Performed/Findings PVS AND CYSTOSCOPY Anesthesia Type GENERAL Estimated Blood Loss Estimated blood loss (mL): NEGLIGIBLE Specimens/Packing Specimens Removed N/A Packing: ESTRACE VAG PACK JAYESH RAMIREZ MD Jul 09, 2017 12:42 pm
[2017-07-09] MEDS ORDERED: fentaNYL INJECTION 100 MCG/2 ML AMP ONE (13:01)
[2017-07-09] MEDS ORDERED: morphine INJ 10 MG/ML 1ML (SYR OR VIAL) ONE (13:39)
[2017-07-09] MEDS ORDERED: KETOROLAC 30 MG/ML VIAL ONE (13:39)
[2017-07-09] MEDS ORDERED: MEPERIDINE (DEMEROL) INJ 50 MG/ML ONE (14:03)
[2017-07-09] MEDS: MEPERIDINE (DEMEROL) INJ 50 MG/ML IVP PRN ×2 (14:32→14:42)
[2017-07-09] MEDS: morphine INJ 10 MG/ML 1ML (SYR OR VIAL) IVP PRN ×2 (14:40→14:53)
[2017-07-09] MEDS ORDERED: HYDROmorphone (DILAUDID) 2 MG/ML VIAL ONE (14:58)
[2017-07-09] MEDS ORDERED: PROMETHAZINE INJ 25 MG/ML (PHENERGAN) AMP IVP PRN (15:00)
[2017-07-09] MEDS: HYDROmorphone (DILAUDID) 2 MG/ML VIAL IVP PRN ×2 (15:03→15:12)
--- NOTE | 2017-07-09 15:28 | Anesthesia-General Post-Op ---
General Patient Condition Mental Status/LOC: Same as Preop Cardiovascular: Satisfactory Nausea/Vomiting: Absent Respiratory: Satisfactory Pain: Controlled Complications: Absent Post Op Complications Complications None Follow Up Care/Instructions Patient Instructions None needed. Anesthesia/Patient Condition Patient Condition Patient is doing well, no complaints, stable vital signs, no apparent adverse anesthesia problems. No complications reported per nursing. WILDER BARON CRNA Jul 09, 2017 15:28
[2017-07-09 15:50] VITALS: BP 106/68
[2017-07-09] MEDS ORDERED: oxyCODONE/APAP 10/325MG (PERCOCET 10) TABLET PO ONE (15:52)
[2017-07-09 16:30] VITALS: BP 109/70
[2017-07-09] MEDS ORDERED: ONDANSETRON 4 MG/2 ML (SDV) Z0FRAN IVP ONE ×2 (17:15→18:15)
[2017-07-09] MEDS ORDERED: methylPREDNISolone 125 MG (Solu-MEDROL) VIAL ONE (21:25)
[2017-07-09 21:30] VITALS: BP 108/69
[2017-07-09] MEDS ORDERED: methylPREDNISolone 40 MG/ML (Solu-MEDROL) VIAL IV ONE (21:30)
--- NOTE | 2017-07-09 23:24 | OPERATIVE REPORT ---
DATE OF SERVICE: 07/09/2017 PREOPERATIVE DIAGNOSIS: stress urinary incontinence. POSTOPERATIVE DIAGNOSIS: stress urinary incontinence. OPERATION PERFORMED: Pubovaginal sling and cystoscopy. SURGEON: Dr. Ramirez. PLATE MAKER: Dr. King. ANESTHESIA: General. COMPLICATIONS: None. DESCRIPTION OF PROCEDURE: After Dr. King performed the first part of his surgery that he will dictate, we inserted a Wilson catheter draining clear urine. I went ahead and passed the Solyx pubovaginal sling device on both sides using the described technique. The sling was sitting nicely under the mid urethra with no twist tension and passage of a curved hemostat easily between it and the underlying tissue. I removed the Wilson catheter, performed cystoscopy to confirm the integrity of the bladder, urethra, ureters and no foreign body. I left the bladder half full, removed the cystoscope, performed a manual Valsalva maneuver that was negative. I reinserted the Wilson catheter draining clear fluid. Estimated blood loss for my part negligible. The patient tolerated the procedure and anesthesia well and was sent to recovery room in stable condition after Dr. King performed the second part of the surgery that he will dictate. Job ID: [id number] DocumentID: [id number] Dictated Date: 07/09/2017 13:58:13 Pouncing Lathe Operator Date: 07/09/2017 23:23:44 Dictated By: JAYESH RAMIREZ MD
--- NOTE | 2017-07-10 00:45 | OPERATIVE REPORT ---
DATE OF SERVICE: 07/09/2017 PREOPERATIVE DIAGNOSES: Uterovaginal prolapse and stress urinary incontinence. POSTOPERATIVE DIAGNOSIS: Uterovaginal prolapse and stress urinary incontinence. OPERATIVE PROCEDURE: Total laparoscopic hysterectomy with bilateral salpingectomy as well as anterior and posterior vaginal repair with enterocele repair and with Dr. Maza performing a pubovaginal sling and cystoscopy. OPERATIVE DESCRIPTION: With the patient in the supine position under satisfactory general anesthesia, she was repositioned in the dorsal lithotomy position in the [facility] and prepped and draped in the usual fashion for abdominal and vaginal surgery. Urinary bladder was drained via Wilson catheter to dependent drainage. A weighted speculum placed in the posterior fornix of vagina, cervix exposed and grasped anteriorly with single-tooth tenaculum. Uterus sounded to 12 cm with uterine sound. The cervix then serially dilated with Jose L dilators to accommodate a CORI II manipulator, which was placed using a 6 mm x 8 cm uterine probe and a 30 mm colpotomy ring. Sutures of #1 Vicryl placed at 3 and 9 o'clock position of the cervix to affix the uterus to the manipulator. The patient brought in low dorsal lithotomy position. A 12 mm incision was made approximately 5 cm superior to the umbilicus. Veress needle was placed through that incision into the abdominal cavity and correct placement confirmed with water drop test. The abdomen was insufflated with 2.4 liters of carbon dioxide and the Veress needle was removed. An attempt had been made to place the Veress needle infraumbilically, but that was unsuccessful. With the abdomen insufflated, a 12 mm port was then placed through the upper midline incision and the laparoscope introduced. The abdominal wall was transilluminated and ports of 8 mm were placed through incisions of those sizes 9 cm lateral to the umbilicus and at the level of the umbilicus. All three port sites had been infiltrated with 0.5% Marcaine with epinephrine prior to incision. The patient was placed in Trendelenburg allowing the bowel spill out of the pelvis. The uterus was elevated. The instrument manipulator was positioned and docked and then the operative instruments were placed in the right and left lateral ports and I retired to the console for the procedure. The ovaries were normal in appearance. There was a fairly large hemorrhagic corpus luteal cyst on the left. There was some blood in the pelvis, likely from the cyst as evidence of recent ovulation. Both fallopian tubes have evidence of remote tubal sterilization using multiple clips and causing several hydrosalpinges. The laparoscope was rotated. The appendix was identified. It was a normal vermiform appendix. The uterus was examined. It was quite mottled, bulky and large consistent with extensive adenomyosis. The procedure was initiated by grasping and elevating the right fallopian tube placed in the vessel sealer across the mesosalpinx and then cauterizing, dividing in stepwise fashion. Clamping, cauterizing, dividing across the mesosalpinx to the uteroovarian pedicle, which was treated in the same manner as was the round ligament, the broad ligaments and finally the cardinal ligament. Same procedure performed on the left. The right ureter was easily seemed to peristalse. The left ureter to this point had not been seen. The broad ligament on the left was then opened and dissection was carried down very deep into that space between the anterior and posterior leaves of the broad ligament and finally the ureter was seemed to be very deep down into the pelvis. With it seemed to be peristalsing and well out of the way, the procedure was continued. The anterior lower uterine segment peritoneum was divided with monopolar nam replacing the vessel sealer. The anterior lower uterine segment peritoneum bladder was carefully dissected to clear out of the way and then a colpotomy incision was started at 12 o'clock position on the colpotomy ring and then continued circumferentially until the whole colpotomy ring was exposed and then the uterus with both fallopian tubes still attached was removed through the vagina. The vaginal cuff was closed using three sutures of V-Loc barbed suture, starting first from the right angle and continuing to the midportion and including securing the uterine vessel pedicles. Same procedure performed on the left. I broke that suture about half way across and then I got a third suture to finish closing the cuff. The cuff was closed, completely hemostatic and was nicely reapproximated. The bladder peritoneum was brought back down onto the cuff with the last few stitches from each suture. Pelvis now irrigated and examined for hemostasis. Again, the right ureter was seemed to peristalse. The left ureter was too deep in the pelvis to explore again. Plan was to have Dr. Maza confirm ureteral efflux. The laparoscopic portion of the procedure was halted. The operative instruments removed under direct vision as were the ports. The abdomen was evacuated of the insufflating gas in the process of removing the ports. The skin incisions were closed with sarabjit after closing the fascia at the supraumbilical incision with [id number] suture of 2-0 Vicryl. With the patient out of Trendelenburg, the legs were elevated in dorsal lithotomy position in preparation for the anterior and posterior vaginal repairs. The anterior repair was initiated by placing weighted speculum posterior points of the vagina. The anterior vaginal wall was grasped with two Jag clamps. The vaginal wall was opened in the midline with Metzenbaum scissors. That opening was continued to approximately a centimeter to a centimeter and half from the urethral meatus and almost up to the apex of the vagina. The bladder wall was carefully dissected off the muscularis of the vagina back to the pubic rami bilaterally. Sutures of 2-0 Vicryl were placed in the endopelvic fascia and bladder wall plicating the fascia and bladder wall elevating the bladder and lengthening the urethra. At this point, Dr. Maza assumed care of the patient. I remained to assist. Dr. Maza performed his pubovaginal sling and cystoscopy with findings of normal bladder with both ureters seemed to efflux easily. Upon completion of Dr. Maza's portion of the procedure, I resumed care of the patient, resected the anterior vaginal wall muscularis mucosa that was redundant. I then closed the vaginal wall with a running lock suture of 3-0 Vicryl Rapide. Posterior repair was now performed by placing Jag clamps on the perineum and the hymenal ring at 5 and 7 o'clock positions. The inverted triangle of skin was removed from the perineal body and upright triangle from the posterior vaginal floor. The rectovaginal space was entered sharply and dissected bluntly to the apex of the vagina where it was explored for an enterocele being one that was plicated with two 2-0 Vicryl pursestring sutures obliterating the enterocele and then additional suture of 2-0 Vicryl were used to obliterate the rectovaginal space and to restore the perineal body. Redundant posterior vaginal muscularis mucosa was removed sharply. The vaginal wall was then closed with a running lock suture of 3-0 Vicryl Rapide as well. The closure was continued past the hymenal ring down on the perineal body, then back up subcutaneous where the suture was tied. Digital rectal exam confirmed no stricture or stenosis of the rectum. There was one suture palpable just barely in the mucosa of the rectum. The suture was clipped with Metzenbaum scissors transrectally and there were no sutures into or through the rectal mucosa remaining. No stricture or stenosis and hemostasis complete. Sponge and needle counts were correct. The procedure was completed. The vagina was filled with Estrace vaginal cream and a pack of Kerlix gauze was placed. Sponge and needle counts were correct. Estimated blood loss was around 300 mL. The patient tolerated the procedure well and was uneventfully awakened from general anesthesia, transferred to recovery room in stable condition with plans for 23-hour observation. Job ID: [id number] DocumentID: [id number] Dictated Date: 07/09/2017 14:25:27 Laboratory Mechanic Helper Date: 07/10/2017 00:44:20 Dictated By: WILTON ESTRELLA MD
[2017-07-10 02:20] VITALS: BP 99/63
[2017-07-10] MEDS: KETOROLAC 30 MG/ML VIAL IVP SCH ×2 (02:23→08:04)
[2017-07-10 08:00] VITALS: BP 134/72
[2017-07-10] MEDS: oxyCODONE/APAP 10/325MG (PERCOCET 10) TABLET PO PRN ×3 (08:04→18:18)
[2017-07-10] MEDS: DOCUSATE SODIUM 100 MG (COLACE) CAP PO SCH ×2 (08:04→20:33)
--- NOTE | 2017-07-10 08:40 | Progress Note-Standard ---
Standard Progress Note Progress Notes/Assess & Plan Date Seen by Provider: Jul 10, 2017 Time Seen by Provider: 08:39 Progress/Assessment & Plan This patient is without complaint. She is ambulating, has good pain control, is tolerating oral intake well. Patient has not voided as yet. She denies chest pain, denies shortness of breath, denies headache, and denies nausea. Vital Signs Date Time Temp Pulse Resp B/P (MAP) Pulse Ox O2 Delivery O2 Flow Rate FiO2 07/10/17 08:00 98.6 104 18 134/72 (92) 96 Room Air 07/10/17 02:20 97.8 99 18 99/63 (75) 93 Room Air 07/09/17 21:30 97.7 98 18 108/69 (82) 94 Room Air 07/09/17 16:30 98.0 67 18 109/70 (83) 98 Room Air 07/09/17 15:50 97.9 77 16 106/68 (81) 98 Room Air 07/09/17 09:45 97.6 85 16 122/90 (101) 100 Room Air I & O 07/10/17 07:00 Intake Total 2700 ml Output Total 3155 ml Balance -455 ml Vital signs are stable. Patient is afebrile. Abdomen is benign Extremities show clubbing or cyanosis. There is no Homans sign. Assessment and plan postoperative day number 1 doing well. Plan is for discharge home when patient demonstrates adequate bladder function. Final Diagnosis Uterovaginal prolapse and stress urinary incontinence WILTON ESTRELLA MD Jul 10, 2017 8:40 am
[2017-07-10 12:00] VITALS: BP 121/73
[2017-07-10] MEDS: IBUPROFEN 800 MG (MOTRIN) TAB PO SCH ×2 (14:37→20:33)
[2017-07-10 17:00] VITALS: BP 112/69
[2017-07-10 20:30] VITALS: BP 134/65
[2017-07-11 03:10] VITALS: BP 96/51
[2017-07-11] MEDS: IBUPROFEN 800 MG (MOTRIN) TAB PO SCH ×3 (03:10→14:45)
--- NOTE | 2017-07-11 07:53 | Progress Note-Standard ---
Standard Progress Note Progress Notes/Assess & Plan Date Seen by Provider: Jul 11, 2017 Time Seen by Provider: 07:52 Progress/Assessment & Plan This patient is without complaint. She is ambulating, has good pain control, is tolerating oral intake well. Patient has not voided as yet. She denies chest pain, denies shortness of breath, denies headache, and denies nausea. Vital Signs Date Time Temp Pulse Resp B/P (MAP) Pulse Ox O2 Delivery O2 Flow Rate FiO2 07/10/17 08:00 98.6 104 18 134/72 (92) 96 Room Air 07/10/17 02:20 97.8 99 18 99/63 (75) 93 Room Air 07/09/17 21:30 97.7 98 18 108/69 (82) 94 Room Air 07/09/17 16:30 98.0 67 18 109/70 (83) 98 Room Air 07/09/17 15:50 97.9 77 16 106/68 (81) 98 Room Air 07/09/17 09:45 97.6 85 16 122/90 (101) 100 Room Air I & O 07/10/17 07:00 Intake Total 2700 ml Output Total 3155 ml Balance -455 ml Vital signs are stable. Patient is afebrile. Abdomen is benign Extremities show clubbing or cyanosis. There is no Homans sign. Assessment and plan postoperative day number 1 doing well. Plan is for discharge home when patient demonstrates adequate bladder function. July 09, 2017 Patient is without complaint. She is ambulating, tolerating by mouth well, has good pain control. Patient has not voided as of yet. He is requiring intermittent catheterization for bladder drainage. Vital Signs Date Time Temp Pulse Resp B/P (MAP) Pulse Ox O2 Delivery O2 Flow Rate FiO2 07/11/17 03:10 97.9 78 18 96/51 (66) 95 Room Air 07/10/17 20:30 98.4 98 18 134/65 (88) 98 Room Air 07/10/17 17:00 98.6 88 18 112/69 (83) 96 Room Air 07/10/17 12:00 98.4 78 18 121/73 (89) 99 Room Air 07/10/17 08:00 98.6 104 18 134/72 (92) 96 Room Air I & O 07/11/17 07:00 Intake Total 2860 ml Output Total 1515 ml Balance 1345 ml Vital signs are stable. Patient is afebrile. Abdomen is benign. Extreme show no clubbing cyanosis. There is no Homans sign. Assessment and plan postoperative day number 2 doing well except for urinary retention which Dr. Rowell is managing. Plan will be for discharge home today with follow-up in clinic Final Diagnosis Uterine and Vaginal prolapse and stress urinary incontinence WILTON ESTRELLA MD Jul 11, 2017 7:53 am
[2017-07-11] MEDS: DOCUSATE SODIUM 100 MG (COLACE) CAP PO SCH (09:05)
[2017-07-11 09:25] VITALS: BP 117/79
[2017-07-11] MEDS: oxyCODONE/APAP 10/325MG (PERCOCET 10) TABLET PO PRN ×3 (09:25→19:38)
--- NOTE | 2017-07-11 11:00 | Progress Note-Urology ---
Progress Note-Urology Progress Notes/Assess & Plan Progress/Assessment & Plan VOIDED ON OWN THIS AM BUT STRAIGHT CATH FOR 300CC. DRY, NO LEAKAGE. OBSERVE TODAY AND TRY AGAIN TO TEACH [facility] OR [facility] TO VISIT AFTER DC Final Diagnosis INCONTINENCE JAYESH RAMIREZ MD Jul 11, 2017 11:00 am
[2017-07-11 19:40] VITALS: BP 114/68
== END 2017-07-11 19:57 | disposition home or self-care (01) ==
LOC: SDC 09:36 → WS 15:30 → SDC 07-11 19:57
PROVIDERS: ATTEND Obstetrics & Gynecology
DX: N81.4 Uterovaginal prolapse, unspecified (principal); N39.3 Stress incontinence (female) (male); N72 Inflammatory disease of cervix uteri; N83.8 Other noninflammatory disorders of ovary, fallopian tube and broad ligament; N70.11 Chronic salpingitis; N83.12 Corpus luteum cyst of left ovary; K21.9 Gastro-esophageal reflux disease without esophagitis; I34.1 Nonrheumatic mitral (valve) prolapse; Z79.899 Other long term (current) drug therapy
CPT/HCPCS: 36415; 84703; 85025; 86850; 86900; 86901; 87081; 94664

== ENCOUNTER 2017-08-16 11:54 | Emergency (ER) | payer BC ==
[~2017-08-16] VITALS: Ht 165.1 cm; Wt 88.5 kg
[~2017-08-16 11:54] MED LIST changes: +CEFU500T63 PO; +DOCU100C37 PO; +HYDR-757 PO; +NITR100C10; +OXYC-465 PO; +PHEN-640 PO
[2017-08-16] MEDS ORDERED: ACETAMINOPHEN 500 MG TAB (TYLENOL) PO ONE (12:30)
[2017-08-16 12:34] LABS: CLARITY,URINE VERY CLOUDY; COLOR,URINE BROWN; GLUCOSE, URINE (UA) NEGATIVE (NEGATIVE); KETONES,URINE 1+ (NEGATIVE); LEUKOCYTE ESTERASE ,URINE 3+ (NEGATIVE); NITRITE,URINE POSITIVE (NEGATIVE); PH,URINE 5 (5-9); PROTEIN,URINE 4+ (NEGATIVE); UROBILINOGEN,URINE 1 MG/DL (NORMAL)
--- NOTE | 2017-08-16 12:34 | ED GU-Female ---
General Chief Complaint: -Female Stated Complaint: URINATING BLOOD Nursing Triage Note: PT TO ROOM 9 PT CO OF URINATING BLOOD, PT IS SELF CATHING AT TIMES, PT STATES HAS BLOOD NOTED WHEN WIPES SELF, STATES HAS PAIN 9/10. PT STATES HAS HAD BLADDER REPAIR AND HYSTERECTOMY APPROX 5 WEEKS AGO. DENIES FEVER Nursing Sepsis Screen: No Definite Risk Source: patient Exam Limitations: no limitations History of Present Illness Date Seen by Provider: August 16, 2017 Time Seen by Provider: 12:23 Initial Comments The patient presents to ER by private conveyance with a chief complaint that she 's been having a little lower suprapubic abdominal pain as well as some blood in her urine. She says about 5 weeks ago she had a transvaginal hysterectomy and bladder procedure and since then she's had problems emptying her bladder or spicy at night that she's had to intermittently straight catheter herself. Since she's had start straight cathetering herself she's been having multiple frequent urinary tract infections. She is afraid she has a UTI today. She's having no fevers chills nausea vomiting diarrhea or constipation. She took some ibuprofen just before coming in but hasn't kicked in yet. She's not had any Tylenol or other pain medicines. She denies any vaginal discharge. The patient does not know what her allergy to Augmentin is since it was when she was a little baby. She says she's had Rocephin before. Allergies and Home Medications Allergies Coded Allergies: amoxicillin (Verified Allergy, Unknown, Pt takes Keflex, 07/09/17) clavulanic acid (Verified Allergy, Unknown, 07/05/17) Patient Home Medication List Home Medication List Reviewed: Yes Review of Systems Constitutional: No chills, No diaphoresis, No fever EENTM: No ear discharge, No hearing loss Respiratory: No cough, No short of breath Cardiovascular: No chest pain, No Hx of Intervention Gastrointestinal: No abdominal pain, No constipation, No diarrhea, No nausea, No vomiting Genitourinary: burning; denies discharge; dysuria : No (status post hysterectomy) Musculoskeletal: No back pain, No joint pain Skin: No pruritus, No rash Psychiatric/Neurological: Denies Headache, Denies Numbness, Denies Paresthesia Past [id number] Hx Patient Social History Alcohol Use: Denies Use Recreational Drug Use: No Smoking Status: Never a Smoker Recent Foreign Travel: No Contact w/Someone Who Travel: No Recent Infectious Disease Expo: No Recent Hopitalizations: No Immunizations Up To Date PED Vaccines UTD: Yes Seasonal Allergies Seasonal Allergies: Yes Past Medical History Surgeries: Yes (URETHRAL DILATION, LAPROSCOPIC OVARIAN CYST REMOVED) Tonsillectomy, Tubal Ligation Respiratory: No Cardiac: Yes (Mitral Valve prolapse) Neurological: No Reproductive Disorders: Yes (PROLAPSE KARON) Female Reproductive Disorders: Menstrual Problems, 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 Sexually Transmitted Disease: No HIV/AIDS: No UTI-Chronic Gastrointestinal: Yes Chronic Constipation Musculoskeletal: Yes (hx mild scoliosis, hx bulging disc) Scoliosis Endocrine: No (THYROID NODULE) Loss of Vision: Denies Hearing Impairment: Denies Cancer: No Psychosocial: No Integumentary: No Blood Disorders: No Adverse Reaction/Blood Tranf: No (HAS HAD BLOOD WITH NO REACTION) Physical Exam Vital Signs Vital Signs - First Documented 08/16/17 12:20 Temp 98.5 Pulse 101 Resp 18 B/P (MAP) 137/82 (100) Pulse Ox 99 Capillary Refill : Less Than 3 Seconds General Appearance: WD/WN, no apparent distress HEENT: PERRL/EOMI, pharynx normal Neck: non-tender, normal inspection Cardiovascular: normal peripheral pulses, regular rate, rhythm, no edema Respiratory: no respiratory distress, no accessory muscle use Gastrointestinal: normal bowel sounds, soft, tenderness (suprapubic) Extremities: non-tender, normal inspection, no pedal edema, no calf tenderness , normal capillary refill Neurologic/Psychiatric: alert, oriented x 3 Skin: normal color, warm/dry, other (laparoscopic surgical sites are clean dry and intact and well-healed.) Progress/Results/Core Measures Suspected Sepsis Recent Fever Within 48 Hours: No Infection Criteria Present: None New/Unexplained Altered Menta: No Sepsis Screen: No Definite Risk SIRS Temperature:98.5 Pulse: 101 Respiratory Rate: 18 Blood Pressure 137 /82 Mean: 100 Results/Orders Lab Results Laboratory Tests Test 08/16/17 12:09 Range/Units Urine Color BROWN H Urine Clarity VERY CLOUDY H Urine pH 5 5-9 Urine Specific [place] 1.025 H 1.016-1.022 Urine Protein 4+ NEGATIVE Urine Glucose (UA) NEGATIVE NEGATIVE Urine Ketones 1+ H NEGATIVE Urine Nitrite POSITIVE H NEGATIVE Urine Bilirubin 1+ H NEGATIVE Urine Urobilinogen 1 NORMAL MG/DL Urine Leukocyte Esterase 3+ H NEGATIVE Urine RBC (Auto) 5+ H NEGATIVE Urine RBC TNTC H /HPF Urine WBC TNTC H /HPF Urine Squamous Epithelial Cells 0-2 /HPF Urine Crystals NONE /LPF Urine Bacteria LARGE H /HPF Urine Casts NONE /LPF Urine Mucus NEGATIVE /LPF Urine Culture Indicated YES My Orders Orders - CHARISSE BERG Ua Culture If Indicated (08/16/17 12:29) Acetaminophen Tablet (Tylenol Tablet) (08/16/17 12:30) Phenazopyridine Tablet (Pyridium Tablet) (08/16/17 12:45) Urine Culture (08/16/17 12:09) Medications Given in ED Current Medications Medications Dose Ordered Sig/Merle Route Start Time Stop Time Status Last Admin Dose Admin Acetaminophen 1,000 mg ONCE ONCE PO 08/16/17 12:30 08/16/17 12:31 DC 08/16/17 12:40 1,000 MG Phenazopyridine HCl 100 mg ONCE ONCE PO 08/16/17 12:45 08/16/17 12:46 DC 08/16/17 12:51 100 MG Vital Signs/I&O 08/16/17 12:20 Temp 98.5 Pulse 101 Resp 18 B/P (MAP) 137/82 (100) Pulse Ox 99 Capillary Refill : Less Than 3 Seconds Blood Pressure Mean: 100 Departure Impression Primary Impression: Urinary tract infection Qualified Codes: T83.511A - Infection and inflammatory reaction due to indwelling urethral catheter, initial encounter; N39.0 - Urinary tract infection , site not specified Disposition: 01 HOME, SELF-CARE Condition: Stable Departure-Patient Inst. Decision time for Depature: 13:08 Referrals: PINKY SINGH MD (PCP/Family) Primary Care Physician Patient Instructions: Urinary Tract Infection, Adult (DC) Add. Discharge Instructions: Make sure you're drinking plenty of water. Use Pyridium 100 mg every 6 hours as needed for urethral pain. You can also use Tylenol 1000 mg or ibuprofen 800 mg every 8 hours for pain. Heating pads can be useful. 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 Plan to follow up in the next week or 2 with your primary care doctor. All discharge instructions reviewed with patient and/or family. Voiced understanding. Scripts Phenazopyridine HCl (Pyridium) 100 Mg Tablet 100 MG PO Q6H PRN for PAIN-BREAKTHROUGH for 30 Days, #20 TAB 0 Refills Prov: CHARISSE BERG 08/16/17 Cephalexin (Cephalexin) 500 Mg Tablet 500 MG PO BID for 7 Days, #14 TAB 0 Refills Prov: CHARISSE BERG 08/16/17 Copy Copies To 1: PINKY SINGH MD, TITUS J August 16, 2017 12:34
[2017-08-16] MEDS ORDERED: PHENAZOPYRIDINE 100 MG (PYRIDIUM) TABLET PO ONE (12:45)
[2017-08-16 12:57] LABS: BACTERIA,URINE LARGE /HPF; BILIRUBIN,URINE 1+ (NEGATIVE); RBC,URINE TNTC /HPF; SQUAMOUS EPITHELIAL CELL,UR 0-2 /HPF; WBC,URINE TNTC /HPF
[2017-08-16] MEDS ORDERED: CEPH500T PO (13:10)
[2017-08-16] MEDS ORDERED: LIDOCAINE 1% INJ 20 ML 20 ML VIAL ONE (13:12)
[2017-08-16] MEDS ORDERED: PHEN-639 PO (13:13)
[2017-08-16] MEDS ORDERED: LIDOCAINE 1% INJ 50 ML (XYLOCAINE) VIAL IJ ONE (13:15)
[2017-08-16] MEDS ORDERED: cefTRIAXone 1 GM (ROCEPHIN) VIAL IM ONE (13:15)
[2017-08-16 13:40] VITALS: BP 137/82
== END 2017-08-16 13:40 | disposition home or self-care (01) ==
LOC: EDUNIT# 11:54 → ER 11:55
DX: N39.0 Urinary tract infection, site not specified (principal); Z90.89 Acquired absence of other organs; Z98.51 Tubal ligation status; Z87.42 Personal history of other diseases of the female genital tract; Z88.1 Allergy status to other antibiotic agents; Z88.8 Allergy status to other drugs, medicaments and biological substances; Z98.890 Other specified postprocedural states
CPT/HCPCS: 81000; 87088; 96372; 99284

== ENCOUNTER 2019-02-13 19:59 | Emergency (ER) | payer SELFPAY ==
[~2019-02-13] VITALS: Ht 165.1 cm; Wt 95.5 kg
[~2019-02-13 19:59] MED LIST changes: +CEPH500T PO; +HYDR-4226 PO; -HYDR-757 PO; +PHEN-639 PO
[2019-02-13] MEDS ORDERED: LIDOCAINE 1% INJ 20 ML 20 ML VIAL ONE (20:24)
[2019-02-13] MEDS ORDERED: cefTRIAXone FOR IV USE 1,000 MG in WATER (STERILE) FOR INJECTION 10 ML IV ONE (20:30)
[2019-02-13] MEDS ORDERED: HYDROcodone/APAP 5 MG/325 MG (LORTAB) TAB PO ONE (20:30)
[2019-02-13] MEDS ORDERED: RX-HYDROCODONE/APAP 5/325 MG #4 TAB PK PO PRN (20:30)
--- NOTE | 2019-02-13 20:31 | ED EENT ---
History of Present Illness General Chief Complaint: Dental Problems/Pain Stated Complaint: TOOTH PAIN,SWELLING Nursing Triage Note: Pt amb to triage with c/o dental pain and facial swelling. Pt reports she has been taking prescribed clindamycin for dental abscess. Pt reports she is scheduled for a root canal on Wednesday (02/17/19). Pt reports she has been applying continued heat to her face. Pt states, "I think I did this to myself, I didn't know you weren't suppose to use heat." Moderate swelling noted to Rt cheek. Denies SOA or difficulty swallowing. Source: patient Exam Limitations: no limitations History of Present Illness Date Seen by Provider: Feb 13, 2019 Time Seen by Provider: 20:19 Initial Comments 28 year old female who presents to the ED with complaints of right sided lower jaw facial pain and swelling that started this morning when she woke up. She reports that last week she was placed on amoxicillin for her dental pain/infection and is scheduled for a root canal on 02/17/19. She reports that yesterday she was seen in [facility] Walk-in for dental pain and requested to have abx changed to clindimycin for abx coverage due to past experiences with dental infection which she started yesterday. She states that she slept all night with a heating pad on her face and woke up this morning with increased swelling. She was seen at [facility] dental clinic this afternoon and had an abscess confirmed on x- ray. She has moderate swelling to right lower jaw. She denies drainage, fevers, nausea, vomiting. Reports mild increase in her pain. Timing/Duration: this morning Location: facial, dental Prearrival Treatment: prescription meds Associated Symptoms: facial pain/swelling; No fever; tooth pain Allergies and Home Medications Allergies Coded Allergies: clavulanic acid (Verified Allergy, Unknown, 07/05/17) Home Medications Cephalexin 500 Mg Tablet, 500 MG PO BID Prescribed by: CHARISSE BERG on 08/16/17 1310 Hydrocodone Bit/Acetaminophen 1 Tab Tab, 1 EACH PO Q4-6HR PRN for PAIN-MODERATE Prescribed by: KODY TALLEY on 02/13/192043 Phenazopyridine HCl 100 Mg Tablet, 100 MG PO Q6H PRN for PAIN-BREAKTHROUGH Prescribed by: CHARISSE BERG on 08/16/17 1313 Patient Home Medication List Home Medication List Reviewed: Yes Review of Systems Review of Systems Constitutional: see HPI; No chills, No fever Mouth: see HPI, pain, swelling Throat: no symptoms reported All Other Systems Reviewed Negative Unless Noted: Yes Past Gewycqq-Xdqhpb-Tdwewm Hx Past Med/Social Hx: Reviewed Nursing Past Med/Soc Hx Patient Social History Alcohol Use: Denies Use Recreational Drug Use: No Smoking Status: Never a Smoker 2nd Hand Smoke Exposure: No Recent Foreign Travel: No Contact w/Someone Who Travel: No Recent Infectious Disease Expo: No Recent Hopitalizations: No Immunizations Up To Date PED Vaccines UTD: Yes Seasonal Allergies Seasonal Allergies: Yes Past Medical History Surgeries: Yes (URETHRAL DILATION, LAPROSCOPIC OVARIAN CYST REMOVED) Tonsillectomy, Tubal Ligation Respiratory: No Cardiac: Yes (Mitral Valve prolapse) Neurological: No Reproductive Disorders: Yes (PROLAPSE KARON) Female Reproductive Disorders: Menstrual Problems, 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 Sexually Transmitted Disease: No HIV/AIDS: No UTI-Chronic Gastrointestinal: Yes Chronic Constipation Musculoskeletal: Yes (hx mild scoliosis, hx bulging disc) Scoliosis Endocrine: No (THYROID NODULE) Loss of Vision: Denies Hearing Impairment: Denies Cancer: No Psychosocial: Yes Anxiety Integumentary: No Blood Disorders: No Adverse Reaction/Blood Tranf: No (HAS HAD BLOOD WITH NO REACTION) Family Medical History Reviewed Nursing Family Hx Physical Exam Vital Signs Vital Signs - First Documented 02/13/19 20:05 Temp 37.0 Pulse 105 Resp 18 B/P (MAP) 135/81 (99) Pulse Ox 99 O2 Delivery Room Air Height, Weight, BMI Height: 5'5.00" Weight: 195lbs. 8.0oz. 88.575176pd; 35.00 BMI Method:Stated General Appearance: WD/WN, no apparent distress Mouth/Throat: dental tenderness, other (Erythema surrounding right lower jaw gumline with out fistula/drainage. Moderate swelling to right cheek. ) Cardiovascular: normal peripheral pulses, regular rate, rhythm, no edema, no gallop, no JVD, no murmur Respiratory: chest non-tender, lungs clear, normal breath sounds, no respiratory distress, no accessory muscle use Neurologic/Psychiatric: alert, normal mood/affect, oriented x 3 Skin: normal color, warm/dry Progress/Results/Core Measures Results/Orders My Orders Orders - KODY TALLEY Rx-Hydrocodone/Apap 5-325 Mg (Rx-Vicodin (02/13/19 20:30) Hydrocodone/Apap 5/325 Tablet (Lortab 5 (02/13/19 20:30) Lidocaine 1% Inj 20 Ml (Xylocaine 1% Inj (02/13/19 20:24) Lidocaine 1% Inj 20 Ml (Xylocaine 1% Inj (02/13/19 20:45) Ceftriaxone For Im Use (Rocephin For Im (02/13/19 20:45) Lidocaine 1% Inj 20 Ml (Xylocaine 1% Inj (02/13/19 20:45) Medications Given in ED Vital Signs/I&O Blood Pressure Mean: 99 POS Progress Progress Note : Time: 20:42 Progress Note I have seen and evaluated the patient. She agrees with plan of care, plans for discharge, return precautions were given such as fever, nausea, vomiting, increased swelling, pain. Departure Impression Primary Impression: Dental abscess Disposition: 01 HOME, SELF-CARE Condition: Stable/Unchanged Departure-Patient Inst. Decision time for Depature: 20:42 Referrals: PINKY SINGH MD (PCP/Family) Primary Care Physician Patient Instructions: Tooth Abscess (DC) Add. Discharge Instructions: Continue to take antibiotics as previously prescribed. You may use ibuprofen and Tylenol as directed by the bottle for pain relief. For additional pain relief you may use the hydrocodone that was prescribed. Follow-up with a dentist as scheduled on Wednesday for your route canal. Return back to the emergency room for worsening symptoms, or concerns as needed. All discharge instructions reviewed with patient and/or family. Voiced understanding. Scripts Hydrocodone Bit/Acetaminophen (Hydrocodone/Acetaminophen 5/325mg Tablet) 1 Tab Tab 1 EACH PO Q4-6HR PRN for PAIN-MODERATE MDD 10 for 3 Days, #15 TAB Prov: KODY TALLEY 02/13/19 KODY TALLEY Feb 13, 2019 20:31 POS
[2019-02-13] MEDS ORDERED: ACHD5005 PO (20:44)
[2019-02-13] MEDS ORDERED: LIDOCAINE 1% INJ 20 ML 20 ML VIAL INJ ONE ×2 (20:45)
[2019-02-13] MEDS ORDERED: cefTRIAXone 1,000 MG/2.86 ml vial (IM ONLY) IM SCH (20:45)
[2019-02-13 21:00] VITALS: BP 135/81
== END 2019-02-13 21:00 | disposition home or self-care (01) ==
LOC: EDUNIT# 19:59 → ER 20:00
DX: K04.7 Periapical abscess without sinus (principal); F41.9 Anxiety disorder, unspecified; Z88.1 Allergy status to other antibiotic agents; Z90.89 Acquired absence of other organs; Z98.51 Tubal ligation status; Z90.710 Acquired absence of both cervix and uterus; Z87.440 Personal history of urinary (tract) infections
CPT/HCPCS: 96372; 99284

== ENCOUNTER → 2019-05-11 | Outpatient (CLI) | payer OTHER ==
[~2019-05-11] MED LIST changes: +ACHD5005 PO
--- NOTE | 2019-05-11 13:02 | Diagnostic Imaging Report ---
CLINICAL INDICATION: Patient with right thyroid nodule. COMPARISONS: Ultrasound of the thyroid gland dated 04/06/2007. FINDINGS: THYROID NODULES: There is a 1.8 cm x 1.8 cm x 3.0 cm heterogeneous solid and cystic nodule involving the inferior aspect of the right thyroid gland which shows small amount of central Doppler flow. Nodule previously in this area measured 7 mm x 10 mm x 8 mm. THYROID GLAND: Besides the thyroid nodule, the thyroid gland has normal size, shape and echogenicity. The right lobe measures 5.3 cm x 1.9 cm x 2.5 cm and the left lobe measures 4.6 cm x 1.0 cm x 1.8 cm in their three dimensions. ISTHMUS: The isthmus is unremarkable and measures 4 mm in thickness. IMPRESSION: 1: Interval increased size of the heterogeneous right thyroid gland nodule measuring 1.8 cm. 2: Thyroid gland is otherwise unremarkable. Dictated by: Dictated on workstation # [id number]
== END ==
LOC: RAD 11:56
PROVIDERS: ATTEND Family Medicine
DX: E04.1 Nontoxic single thyroid nodule (principal)
CPT/HCPCS: 76536

== ENCOUNTER → 2019-06-07 | Outpatient (CLI) | payer OTHER ==
[~2019-06-07] VITALS: Ht 165.1 cm; Wt 97.7 kg
[~2019-06-07] MED LIST changes: +LIDOCAINE 1% INJ 20 ML 20 ML VIAL INJ ONE
--- NOTE | 2019-06-07 11:55 | Diagnostic Imaging Report ---
INDICATION: Right thyroid nodule. Patient presents for an ultrasound guided fine needle aspiration. TECHNIQUE: The patient was brought to the procedure room and placed on the table in the supine position. Ultrasound imaging of the right neck was performed to evaluate for an appropriate entry site. The right neck was then prepped and draped in the usual sterile fashion. A small amount of 1% lidocaine was utilized for local anesthesia. A total of 4 passes was made into the solid dominant hypoechoic mass in the right lobe of the thyroid utilizing 25-gauge needles and fine-needle aspiration technique. The patient tolerated the procedure well and left the Department in stable condition. IMPRESSION: Successful ultrasound-guided fine needle aspiration of the dominant solid nodule in the right lobe of the thyroid. Pathology results are currently pending. Dictated by: Dictated on workstation # [id number]
== END ==
LOC: RAD 10:05
PROVIDERS: ATTEND Surgery
DX: E04.1 Nontoxic single thyroid nodule (principal)
CPT/HCPCS: 88173; 88305

== ENCOUNTER → 2019-10-13 | Outpatient (CLI) | payer SELFPAY ==
[~2019-10-13] MED LIST changes: -LIDOCAINE 1% INJ 20 ML 20 ML VIAL INJ ONE
--- NOTE | 2019-10-13 08:59 | Diagnostic Imaging Report ---
PROCEDURE: MR imaging of the brain without contrast. TECHNIQUE: Multiplanar, multisequence MR imaging of the brain was performed without contrast. INDICATION: Headaches. Dizziness and vision problems. COMPARISON: 05/06/2015. FINDINGS: No acute ischemia, mass, or hemorrhage. The ventricles, cortical sulci, and basilar cisterns are symmetric and unremarkable. The sellar and suprasellar regions have a normal appearance. The brainstem and posterior fossa are unremarkable. The paranasal sinuses and mastoid air cells demonstrate normal signal characteristics. The globes and orbits are symmetric and unremarkable. The scalp and calvarium have a normal appearance. IMPRESSION: 1. No acute ischemia, mass, or hemorrhage. No acute abnormalities. Dictated by: Dictated on workstation # [id number]
== END ==
LOC: RAD 07:44
PROVIDERS: ATTEND Family Medicine
DX: R51 Headache (principal); R42 Dizziness and giddiness; H53.9 Unspecified visual disturbance
CPT/HCPCS: 70551

== ENCOUNTER → 2019-11-21 | Outpatient (CLI) | payer SELFPAY ==
--- NOTE | 2019-11-21 10:57 | Diagnostic Imaging Report ---
PROCEDURE: US Thyroid. TECHNIQUE: Multiple Real-time grayscale images were obtained of the thyroid in various projections. INDICATION: Followup thyroid nodule. COMPARISON: Thyroid ultrasound from 05/11/2019. FINDINGS: Right thyroid lobe: The right thyroid lobe measures 4.8 x 1.9 x 2.3 cm. Mixed solid and cystic nodule within the right thyroid lobe that is wider than tall measuring 1.6 x 1.6 x 3.1 cm, previously 1.8 x 1.8 x 2.3 cm. The nodule has a more cystic appearance on today's examination. Isthmus: The thyroid isthmus measures 0.4 cm. Left thyroid lobe: The left thyroid lobe measures 4.3 x 1.0 x 1.3 cm. No nodule within the left thyroid. IMPRESSION: The right thyroid nodule has mildly increased in size since the prior examination although there is more of a cystic appearance. This may represent a component of hemorrhage or cystic change associated with the previous FNA. Continued surveillance is suggested with a thyroid ultrasound in 6 months if the nodule is not resected in the interim. ACR TI-RADS: TR3 . Dictated by: Dictated on workstation # [id number]
== END ==
LOC: RAD 07:48
PROVIDERS: ATTEND Surgery
DX: E04.1 Nontoxic single thyroid nodule (principal)
CPT/HCPCS: 76536

== ENCOUNTER → 2020-05-29 | Outpatient (CLI) | payer OTHER ==
[~2020-05-29] MED LIST changes: -OXYC-465 PO; +OXYC-556 PO
--- NOTE | 2020-05-29 12:31 | Diagnostic Imaging Report ---
INDICATION: Right thyroid mass, follow-up. History of fine needle aspiration. TECHNIQUE: Grayscale sonographic images of the thyroid gland. CORRELATION STUDY: 11/21/2019, 05/11/2019 FINDINGS: RIGHT LOBE: 4.9 x 2.1 x 2.4 cm. At the mid inferior pole is again demonstration of a mixed solid and cystic mass to be present. There is some vascularity solid components. Currently measures 3.4 x 2.1 x 1.7 cm (previously 3.1 x 1.7 x 1.6 cm). LEFT LOBE: 4.2 x 1.0 x 1.6 cm. There is normal echotexture about the left lobe. Isthmus appears unremarkable. IMPRESSION: Complex right thyroid gland mass has shown continued progressive interval enlargement. There is overall more cystic appearance when compared to previous older, baseline studies. TR 5 lesion Correlation with previous pathology results is recommended. If indicated, a repeat aspiration might be considered. Dictated by: Dictated on workstation # [id number]
== END ==
PROVIDERS: ATTEND Surgery
DX: E04.1 Nontoxic single thyroid nodule (principal)
CPT/HCPCS: 76536

== ENCOUNTER → 2021-04-25 | Outpatient (CLI) | payer OTHER ==
--- NOTE | 2021-04-25 12:44 | Diagnostic Imaging Report ---
PROCEDURE: US Thyroid. TECHNIQUE: Multiple real-time grayscale images were obtained of the thyroid in various projections. INDICATION: Partial thyroidectomy 10 months ago. COMPARISON: Correlation is made with prior thyroid ultrasound from 05/29/2020. FINDINGS: Right lobe of the thyroid is now surgically absent. Left lobe measures 4.4 x 1.2 x 1.9 cm. Isthmus is 3 mm in thickness. The left lobe demonstrates homogeneous echotexture. No discrete mass is detected. IMPRESSION: Status post right thyroidectomy. Left lobe of the thyroid and isthmus are unremarkable. Dictated by: Dictated on workstation # [id number]
== END ==
LOC: RAD 11:51
PROVIDERS: ATTEND Family Medicine
DX: Z90.89 Acquired absence of other organs (principal)
CPT/HCPCS: 76536